=== PATIENT | male | born 1980 | race Two or more races ===

== ENCOUNTER → 2024-02-14 | Outpatient (BNVA) | payer MEDICAID, SELFPAY | END | disposition home or self-care (01) | PROVIDERS: PCP Nurse Practitioner Family; Referring Provider Nurse Practitioner Family; Visit Provider Nurse Practitioner Family | DX: Z71.2 Person consulting for explanation of examination or test findings (principal); E78.5 Hyperlipidemia, unspecified; R73.03 Prediabetes; E55.9 Vitamin D deficiency, unspecified | CPT/HCPCS: 99213 ==

== ENCOUNTER → 2024-03-10 | Outpatient (CLI) | payer MEDICAID, SELFPAY ==
--- NOTE | 2024-03-10 09:00 | XR_ITS ---
Examination: MRI left hand, without contrast Date and time of exam: March 10, 2024 0934 hours INDICATIONS: Injury to the hand June 2023 with pain and swelling around the left hand third digit 8 months Technique: Multiple axial sagittal and coronal images of the left hand have been obtained with the Siemens high-resolution 1.5 Eva MRI scanner. Images obtained include T2-weighted fat-suppressed sagittal sections, TR 3500, TE 46, T2 weighted coronal fat suppressed images, TR 3050, TE 84, T2-weighted transverse fat suppressed images, TR 3260, TE 63, proton density transverse images, TR 4720 TE 46, and T1 weighted coronal images, TR 560, TE 13. Findings: Abnormal marrow edema involving the base of the proximal phalanx third digit Flexor and extensor tendons appear intact Small knee effusion at the third metacarpal phalangeal joint No ganglion cyst No foreign body depicted IMPRESSION: Abnormal marrow edema involving the base of the proximal phalanx third digit, recommend CT scan hand follow-up to exclude nondisplaced fractures involving the base of the proximal phalanx third digit
== END | disposition home or self-care (01) ==
PROVIDERS: PCP Nurse Practitioner Family; Referring Provider Nurse Practitioner Family; Visit Provider Nurse Practitioner Family
DX: M25.442 Effusion, left hand (principal); S69.92XA Unspecified injury of left wrist, hand and finger(s), initial encounter; X58.XXXA Exposure to other specified factors, initial encounter
CPT/HCPCS: 73218